=== PATIENT | male | born 1975 | race Caucasian/White ===

== ENCOUNTER 2020-10-11 07:02 | Outpatient (CLI) | payer OTHER, SELFPAY ==
[2020-10-11 07:33] LABS: Cholesterol 230 mg/dL (0-200); HDL Direct 30 mg/dL; Triglycerides 373 mg/dL (<150)
[2020-10-11 07:44] LABS: LDL Cholesterol Direct 90 mg/dL
== END 2020-10-11 07:03 | disposition home or self-care (01) ==
PROVIDERS: PCP Family Medicine; Visit Provider Family Medicine
DX: Z13.220 Encounter for screening for lipoid disorders (principal)
CPT/HCPCS: 36415; 80061

== ENCOUNTER 2020-11-06 09:17 | Outpatient (NON) | payer OTHER, SELFPAY ==
[2020-11-06 23:00] LABS: SARS-CoV-2 RNA PCR Positive
== END 2020-11-06 09:18 ==
LOC: ANHCOVIDDT 09:19
PROVIDERS: PCP Family Medicine; Visit Provider Family Medicine
DX: U07.1 COVID-19 (principal)
CPT/HCPCS: 87635; C9803; U0003

== ENCOUNTER 2021-03-12 08:30 | Outpatient (CLI) | payer OTHER, SELFPAY | END 2021-03-12 08:31 | disposition home or self-care (01) | LOC: ANHCOVIDVC 08:30 | PROVIDERS: PCP Family Medicine | DX: Z23 Encounter for immunization (principal) | CPT/HCPCS: 0001A; 91300 ==

== ENCOUNTER 2021-04-02 08:16 | Outpatient (CLI) | payer OTHER, SELFPAY | END 2021-04-02 08:17 | disposition home or self-care (01) | LOC: ANHCOVIDVC 08:16 | PROVIDERS: PCP Family Medicine | DX: Z23 Encounter for immunization (principal) | CPT/HCPCS: 0002A; 91300 ==

== ENCOUNTER 2021-09-12 07:07 | Outpatient (CLI) | payer OTHER, SELFPAY ==
[2021-09-12 07:54] LABS: Basophils Percent Auto 0.6 % (0.2-1.2); Eosinophils Absolute Auto 0.2 K/mm3 (0-0.3); Eosinophils Percent Auto 3.7 % (0-4.4); Hematocrit 41.2 % (42.0-52.0); Hemoglobin 14.5 g/dL (14.0-18.0); Immature Granulocyte Absolute 0.01 K/mm3 (0.00-0.031); Immature Granulocyte Percent A 0.2 % (0-0.5); Lymphocytes Absolute Auto 2.29 K/mm3 (0.9-3.2); Lymphocytes Percent Auto 36.5 % (18.3-44.2); Mean Corpuscular HGB Conc 35.2 g/dl (32-36); Mean Corpuscular Hemoglobin 34.1 pg (26-34); Mean Corpuscular Volume 96.9 fl (80-100); Mean Platelet Volume 10.4 fl (7.4-10.4); Monocytes Absolute Auto 0.4 K/mm3 (0.1-0.6); Monocytes Percent Auto 6.8 % (2.6-8.5); Neutrophils Absolute Auto 3.3 K/mm3 (1.3-6.7); Neutrophils Percent Auto 52.2 % (45.5-73.1); Platelet Count Result 179 k/mm3 (150-375); Red Blood Count 4.25 M/mm3 (4.6-6.20); White Blood Count 6.3 K/mm3 (4.5-10.0)
[2021-09-12 07:56] LABS: Add Urine Microscopic? NO; Appearance Urine Clear (Clear); Bilirubin Urine Negative (Negative); Blood Urine Negative (Negative); Color Urine Yellow (Yellow); Glucose Urine UA Negative (Negative); Ketones Urine Negative (Negative); Leukocyte Esterase Ur Negative LEU/UL (NEGATIVE); Nitrate Urine Negative (Negative); Protein Urine Negative (Negative); Specific Grav Ur 1.019 (1.001-1.035); Urobilinogen Urine Negative mg/dL (<2.0)
[2021-09-12 08:08] LABS: Alanine Aminotransferase 37 U/L (4-50); Albumin Level 4.4 g/dL (3.5-5.1); Alkaline Phosphatase 37 U/L (38-126); Anion Gap 8 mmol/L (8-16); Aspartate Amino Transferase 31 U/L (17-59); Bilirubin,Total 0.8 mg/dL (0.2-1.3); Blood Urea Nitrogen 19 mg/dL (9-20); Carbon Dioxide 26 mmol/L (22-30); Chloride 105 mmol/L (98-107); Cholesterol 216 mg/dL (0-200); Estimated Glomerular Filt Rate 59; Glucose 95 mg/dL (65-110); HDL Direct 31 mg/dL; Potassium 4.3 mmol/L (3.4-5.0); Sodium 139 mmol/L (137-145); Triglycerides 251 mg/dL (<150)
[2021-09-12 08:20] LABS: LDL Cholesterol Direct 100 mg/dL
== END 2021-09-12 07:08 | disposition home or self-care (01) ==
PROVIDERS: PCP Family Medicine; Visit Provider Family Medicine
DX: R53.83 Other fatigue (principal); Z13.220 Encounter for screening for lipoid disorders
CPT/HCPCS: 36415; 80053; 80061; 81003; 84443; 85025

== ENCOUNTER 2021-12-14 01:42 | Day surgery (SDC) | payer OTHER, SELFPAY ==
[2021-11-30 15:35] VITALS: BMI 29.5
--- NOTE | 2021-12-13 14:05 | WPDANESEPPF ---
Anes - Initial Pre Proc Eval Procedure: Operation Date: 12/14/21 09:00 Proposed Procedures p Screening Colonoscopy - Skyler Gleason MD <Nito Maria DO - Last Filed: 12/14/21 09:37> Date/Time: 12/13/21 14:05 <Nito Maria DO - Last Filed: 12/14/21 09:37> Surgeon: Skyler Gleason MD <Nito Maria DO - Last Filed: 12/14/21 09:37> Pre Op Diagnosis: neoplasm screening <Nito Maria DO - Last Filed: 12/14/21 09:37> Patient Data Age: 46 Gender: M Height: 1.73 m Weight: 88 kg <Nito Maria DO - Last Filed: 12/14/21 09:37> Allergies Allergy/AdvReac Type Severity Reaction Status Date / Time No Known Allergies Allergy Verified 12/14/21 08:16 <Nito Maria DO - Last Filed: 12/14/21 09:37> Home Medications Medication Instructions Recorded Confirmed Type No Home Medications 11/30/21 12/14/21 History <Nito Maria DO - Last Filed: 12/14/21 09:37> Patient hx anesthesia problems: none <Maria Elena Han CRNA - Last Filed: 12/14/21 09:11> Family hx anesthesia problems: none <Maria Elena Han CRNA - Last Filed: 12/14/21 09:11> Results Review: All pre-operative results and documents have been reviewed as part of the pre-operative evaluation. <Nito Maria DO - Last Filed: 12/14/21 09:37> [facility] Past Medical History Medical History: Medical History (Updated 12/14/21 @ 09:06 by Skyler Gleason MD) Colon cancer screening <Nito Maria DO - Last Filed: 12/14/21 09:37> Family History Family History: Family History (Updated 10/27/18 @ 12:08 by DOCTOR UNKNOWN) Other Family history of cardiovascular disease Family history of malignant neoplasm of breast <Nito Maria DO - Last Filed: 12/14/21 09:37> Social History Social History: Social History Smoking status: Never smoker Alcohol intake: never Living arrangements: with family Spiritual care concerns: No <Nito Maria DO - Last Filed: 12/14/21 09:37> Anes - Eval Final PreProcedure Day of Procedure 12/13/21 14:05 <Nito Maria DO - Last Filed: 12/14/21 09:37> Patient weight: overweight <Nito Maria DO - Last Filed: 12/14/21 09:37> Heart: regular rate and rhythm <Nito Maria DO - Last Filed: 12/14/21 09:37> Lungs: clear to auscultation and normal air movement <Nito Maria DO - Last Filed: 12/14/21 09:37> Airway: Mallampati scale class II <Nito Maria DO - Last Filed: 12/14/21 09:37> Neurological: alert and oriented <Nito Maria DO - Last Filed: 12/14/21 09:37> Last oral intake: >/= 8 hours <Nito Maria DO - Last Filed: 12/14/21 09:37> ASA classification: I <Nito Maria DO - Last Filed: 12/14/21 09:37> Emergent: no <Nito Maria DO - Last Filed: 12/14/21 09:37> Anesthetic plan: proceed <Nito Maria DO - Last Filed: 12/14/21 09:37> Anesthesia type and monitoring: general GIVS and standard monitoring <Nito Maria DO - Last Filed: 12/14/21 09:37> Results Review: All pre-operative results and documents have been reviewed as part of the pre-operative evaluation. <Nito Maria DO - Last Filed: 12/14/21 09:37> Informed Consent: The patient's anesthetic plan and its attendant risks and benefits were discussed with the patient/family/POA. Questions were solicited and answers provided to the satisfaction of the patient/family/POA. <Nito Maria, DO - Last Filed: 12/14/21 09:37>
[2021-12-14 08:17] VITALS: BP 122/77; PULSE 57; RESP 20; TEMP 36.1; O2SAT 100; BMI 29.5
[2021-12-14] MEDS: LACTATED RINGERS 1,000 ML 150 ML IV CONT (08:21)
--- NOTE | 2021-12-14 09:06 | PM.HPGS ---
History of Present Illness History of Present Illness Consent: Risks, benefits, and alternatives have been discussed and questions answered. Patient agrees to proceed with procedure. Chief complaint: neoplasm screening Narrative: Arsenio Harrington is a 46 year old male here for first screening colonoscopy Review of Systems Constitutional: Constitutional: Denies headache(s) and Denies weakness Eyes: Eyes: Denies blurry vision ENT: Reports Normal hearing present, Denies headache(s) and Denies neck pain Cardiovascular: Cardiovascular: Denies chest pain and Denies dyspnea Respiratory: Respiratory: Denies dyspnea Gastrointestinal: Gastrointestinal: Reports no additional gastrointestinal complaints Genitourinary: Genitourinary: Denies dysuria Musculoskeletal: Musculoskeletal: Denies neck pain Integumentary/Breasts: Skin/Breast: Denies dry skin Neurologic: Reports Normal hearing present, Denies headache(s) and Denies weakness Psychiatric: Psychiatric: Denies anxiety Endocrine: Endocrine: Denies change in body appearance Hematologic/Lymphatic: Hematologic/Lymphatic: Denies easy bleeding Allergic/Immunologic: Allergic/Immunologic: Denies urticaria PMFSH Past Medical History Medical History (Updated 12/14/21 @ 09:06 by Skyler Gleason MD) Colon cancer screening Family History Family History (Updated 10/27/18 @ 12:08 by DOCTOR UNKNOWN) Other Family history of cardiovascular disease Family history of malignant neoplasm of breast Social History Social History Smoking status: Never smoker Alcohol intake: never Living arrangements: with family Spiritual care concerns: No Meds Home Medications and Allergies Home Medications Medication Instructions Recorded Confirmed Type No Home Medications 11/30/21 12/14/21 History Allergies Allergy/AdvReac Type Severity Reaction Status Date / Time No Known Allergies Allergy Verified 12/14/21 08:16 Vital Signs Vital Signs - 24 hr 12/14/21 08:17 Temperature 97.0 F L Pulse Rate 57 L Respiratory Rate 20 Blood Pressure 122/77 Pulse Oximetry 100 Exam Const: General: comfortable and no acute distress HENMT: General nose exam: Normal nares present Eyes: General: appearance normal, both eyes and all related structures Neck: Neck: no JVD Resp: Auscultation: clear to auscultation bilaterally Cardio: Rate: regular rate Rhythm: regular rhythm GI: Inspection: non-distended GI Palp: Yes Soft to palpation Skin: General skin exam: normal color Neuro: General: gait normal Speech: normal speech Extrem: General: normal to inspection Psych: Mental Status: mental status grossly normal Assessment and Plan Assessment and plan (1) Colon cancer screening: Code(s): Z12.11 - Encounter for screening for malignant neoplasm of colon Status: Acute Assessment and Plan: colonoscopy
--- NOTE | 2021-12-14 09:20 | SUR.OPER ---
RN updated family
[2021-12-14 09:23] VITALS: BP 92/63; PULSE 58; RESP 14; O2SAT 97
[2021-12-14 09:33] VITALS: BP 107/72; PULSE 57; RESP 16; O2SAT 99
[2021-12-14 09:43] VITALS: BP 110/71; PULSE 58; RESP 20; O2SAT 100
== END 2021-12-14 09:50 | disposition home or self-care (01) ==
PROVIDERS: PCP Family Medicine; Visit Provider Internal Medicine Gastroenterology
PROC: 0DJD8ZZ Inspection of Lower Intestinal Tract, Via Natural or Artificial Opening Endoscopic (ICD-10-PCS; CPT 45378; principal; 2021-12-14 09:00)
DX: Z12.11 Encounter for screening for malignant neoplasm of colon (principal); K57.30 Diverticulosis of large intestine without perforation or abscess without bleeding; K64.8 Other hemorrhoids
CPT/HCPCS: 45378; J2704; J7120

== ENCOUNTER 2024-02-04 07:22 | Outpatient (CLI) | payer OTHER, SELFPAY ==
[2024-02-04 08:30] LABS: Cholesterol 197 mg/dL (0-200); HDL Direct 31 mg/dL; Triglycerides 361 mg/dL (<150)
[2024-02-04 08:41] LABS: LDL Cholesterol Direct 94 mg/dL
== END 2024-02-04 07:23 | disposition home or self-care (01) ==
LOC: ANHLAB 07:25
PROVIDERS: PCP Family Medicine; Visit Provider Family Medicine
DX: E78.2 Mixed hyperlipidemia (principal)
CPT/HCPCS: 36415; 80061